=== PATIENT | female | born 1945 | race Asian ===

== ENCOUNTER 2017-09-28 22:11 | Observation (INO) | payer MEDICARE, BC ==
[2017-09-28 22:38] LABS: URINE BLOOD (Dip) POC Negative (NEGATIVE); URINE GLUCOSE (Dip) POC Negative (NEGATIVE); URINE KETONES (Dip) POC Negative (NEGATIVE); URINE LEUKOCYTE EST (Dip) POC 1+ (NEGATIVE); URINE NITRITE (Dip) POC Negative (NEGATIVE); URINE TOTAL PROTEIN POC Negative (NEGATIVE)
[2017-09-28 23:08] LABS: ADD MAN DIFF? NO
[2017-09-28 23:12] LABS: WHITE BLOOD COUNT 6.1 10^3/ul (4.8-10.8)
[2017-09-28 23:12] LABS: BASOPHILS % 0.5 % (0.0-2.0); EOSINOPHILS # 0.3 10^3/ul (0.0-0.5); EOSINOPHILS % 5.2 % (0.0-7.0); HEMATOCRIT 36.5 % (37.0-47.0); HEMOGLOBIN 12.4 g/dl (12.0-16.0); LYMPHOCYTES # 1.6 10^3/ul (0.8-2.9); LYMPHOCYTES % 26.7 % (15.0-51.0); MEAN CORPUSCULAR HEMOGLOBIN 28.5 pg (29.0-33.0); MEAN CORPUSCULAR VOLUME 83.9 fl (82.0-101.0); MONOCYTE # 0.6 10^3/ul (0.3-0.9); MONOCYTES % 9.8 % (0.0-11.0); NEUTROPHIL # 3.5 10^3/ul (1.6-7.5); NEUTROPHILS % 57.5 % (39.0-77.0); PLATELET COUNT 258 10^3/UL (140-415); RED BLOOD COUNT 4.35 10^6/ul (4.20-5.40); RED CELL DISTRIBUTION WIDTH 13.3 % (11.5-14.5)
[2017-09-28 23:33] LABS: INR 0.97
[2017-09-28 23:34] LABS: PARTIAL THROMBOPLASTIN TIME 29.7 Sec (25.0-35.0)
[2017-09-28] MEDS: NITROGLYCERIN 2% 1 GM OINT PKT TD (23:37)
[2017-09-28 23:38] LABS: ALANINE AMINOTRANSFERASE 47 IU/L (13-69); ALBUMIN 4.2 g/dl (3.3-4.9); ALBUMIN/GLOBULIN RATIO 1.31; ALKALINE PHOSPHATASE 92 IU/L (42-121); ANION GAP 14 (8-16); ASPARTATE AMINO TRANSFERASE 31 IU/L (15-46); BILIRUBIN,INDIRECT 0.2 mg/dl (0-1.1); BILIRUBIN,TOTAL 0.2 mg/dl (0.2-1.3); BLOOD UREA NITROGEN 18 mg/dl (7-20); CALCIUM 9.7 mg/dl (8.4-10.2); CARBON DIOXIDE 26 mmol/L (21-31); CHLORIDE 98 mmol/L (97-110); CREATININE 0.86 mg/dl (0.44-1.00); GLUCOSE 101 mg/dl (70-220); LIPASE 122 U/L (23-300); POTASSIUM 3.8 mmol/L (3.5-5.1); SODIUM 134 mmol/L (135-144); TOTAL PROTEIN 7.4 g/dl (6.1-8.1)
[2017-09-28] MEDS: PANTOPRAZOLE (EC) 40 MG TAB PO ×2 (23:41→23:42)
[2017-09-28] MEDS: ASPIRIN 325 MG TAB PO (23:41)
[2017-09-28 23:47] LABS: B-TYPE NATRIURETIC PEPTIDE 346 PG/ML (0-125)
[2017-09-28] MEDS: ACETAMINOPHEN 325 MG TAB PO (23:47)
[2017-09-28 23:59] LABS: TROPONIN-I < 0.012 ng/ml (0.00-0.12)
[2017-09-29] MEDS: CEFTRIAXONE 1 GM/50 ML (PMX) 50 ML IVPB (00:26)
[2017-09-29] MEDS: ATENOLOL 50 MG TAB PO ×2 (00:30→06:30)
[2017-09-29] MEDS ORDERED: NACL 0.9% 3 ML SYG IV (01:00)
[2017-09-29] MEDS ORDERED: ACETAMINOPHEN 325 MG TAB PO (01:00)
[2017-09-29] MEDS ORDERED: ZOLPIDEM 5 MG TAB PO (01:00)
[2017-09-29] MEDS ORDERED: ONDANSETRON 4 MG TAB PO (01:00)
[2017-09-29] MEDS ORDERED: LORAZEPAM 0.5 MG TAB PO (01:00)
[2017-09-29] MEDS ORDERED: morphine 2 MG INJ IV (01:00)
[2017-09-29] MEDS ORDERED: MAGNESIUM HYDROXIDE 30ML CUP PO (01:00)
[2017-09-29] MEDS ORDERED: NITROGLYCERIN (SL) 0.4 MG TAB SL (01:00)
[2017-09-29] MEDS: PANTOPRAZOLE (EC) 40 MG TAB PO (06:00)
[2017-09-29] MEDS: MAGNESIUM HYDROXIDE 30ML CUP PO (09:00)
[2017-09-29] MEDS: CLOPIDOGREL 75 MG TAB PO (09:01)
[2017-09-29] MEDS: LEVOTHYROXINE 50 MCG TAB PO (09:01)
[2017-09-29] MEDS: ASPIRIN 81 MG TAB PO (09:01)
[2017-09-29] MEDS: LOSARTAN 50 MG TAB PO (09:02)
[2017-09-29] MEDS: CHOLECALCIFEROL 2,000 UNIT CAP PO (09:02)
[2017-09-29] MEDS: AMLODIPINE 5 MG TAB PO (09:03)
[2017-09-29 09:47] LABS: CHOL/HDL RATIO 3.4 RATIO; HDL CHOLESTEROL 47 mg/dl (33-92); LDL CHOLESTEROL,CALCULATED 98 mg/dl; TRIGLYCERIDES 95 mg/dl (0-149)
[2017-09-29 09:47] LABS: CHOLESTEROL 164 mg/dl (100-200)
[2017-09-29 10:01] LABS: TROPONIN-I < 0.012 ng/ml (0.00-0.12)
[2017-09-29 13:03] LABS: TROPONIN-I < 0.012 ng/ml (0.00-0.12)
[2017-09-29] MEDS ORDERED: ATORVASTATIN 40 MG TAB PO (21:00)
== END 2017-09-29 15:27 | disposition home or self-care (01) ==
LOC: MS4 09-29 00:15 → E/R 22:11
PROVIDERS: Internal Medicine
DX: R30.0 Dysuria (principal); R07.89 Other chest pain; I10 Essential (primary) hypertension; F41.9 Anxiety disorder, unspecified; E03.9 Hypothyroidism, unspecified
CPT/HCPCS: 36415; 71045; 80053; 80061; 81003; 83690; 83880; 84484; 85025; 85610; 85730; 87086; 93005; 93306; 96374; 99285-25; G0378

== ENCOUNTER 2017-11-25 01:16 | Emergency (ER) | payer MEDICARE, BC ==
[2017-11-25 05:08] LABS: URINE PH (Dip) POC 6.5 (5.0-8.5)
[2017-11-25 05:08] LABS: URINE BLOOD (Dip) POC Negative (NEGATIVE); URINE GLUCOSE (Dip) POC Negative (NEGATIVE); URINE KETONES (Dip) POC Negative (NEGATIVE); URINE LEUKOCYTE EST (Dip) POC Negative (NEGATIVE); URINE NITRITE (Dip) POC Negative (NEGATIVE); URINE TOTAL PROTEIN POC Negative (NEGATIVE)
[2017-11-25] MEDS: PANTOPRAZOLE (EC) 40 MG TAB PO (05:38)
== END 2017-11-25 06:06 | disposition home or self-care (01) ==
LOC: E/R 01:16
DX: R10.13 Epigastric pain (principal); I10 Essential (primary) hypertension; I25.10 Atherosclerotic heart disease of native coronary artery without angina pectoris; E03.9 Hypothyroidism, unspecified; Z98.61 Coronary angioplasty status; Z79.82 Long term (current) use of aspirin
CPT/HCPCS: 81003; 93005; 99283-25